=== PATIENT | female | born 1990 | race Two or more races ===

== ENCOUNTER 2021-12-26 17:01 | Emergency (ER) | payer SELFPAY ==
[~2021-12-26] VITALS: Ht 165.1 cm; Wt 80.3 kg
[2021-12-26 18:05] LABS: BASOPHILS % (AUTO) 0.6 % (0.0-2.0); EOSINOPHILS % (AUTO) 1.5 % (0.0-6.0); HEMATOCRIT 29 % (33-45); HEMOGLOBIN 9.6 g/dL (11.5-14.8); MEAN CORPUSCULAR HGB CONC 33 g/dl (31.0-36.0); MEAN CORPUSCULAR VOLUME 84 fL (82-100); MONOCYTES # (AUTO) 0.6 K/uL (0.1-1.30); MONOCYTES % (AUTO) 6.8 % (2.0-12.0); NEUTROPHILS # (AUTO) 5.6 K/uL (1.8-8.9); NEUTROPHILS % (AUTO) 67.1 % (43.0-81.0); PLATELET COUNT (AUTO) 433 K/uL (150-450); RED BLOOD CELL COUNT(AUTO) 3.52 MIL/uL (4.0-5.2); WHITE BLOOD COUNT (AUTO) 8.4 K/uL (4.3-11.0)
[2021-12-26 18:23] LABS: CALCIUM, SERUM 8.2 mg/dL (8.5-10.1); CREATININE 0.7 mg/dL (0.6-1.3); POTASSIUM 3.4 mmol/L (3.5-5.1)
[2021-12-26 18:51] LABS: ALBUMIN 2.5 g/dL (3.4-5.0); BILIRUBIN,DIRECT 0.1 mg/dL (0.0-0.2); BILIRUBIN,TOTAL 0.1 mg/dL (0.2-1.0); TOTAL PROTEIN, SERUM 6.6 g/dL (6.4-8.2)
--- NOTE | 2021-12-26 19:24 | NUR ---
URINE COLLECTED AND SENT TO LAB
[2021-12-26] MEDS ORDERED: PREN1TAB81 PO (20:11)
[2021-12-26 20:18] LABS: BILIRUBIN,URINE NEGATIVE (NEGATIVE); COLOR,URINE YELLOW (YELLOW); LEUKOCYTE ESTERASE ,URINE NEGATIVE (NEGATIVE); NITRITE, URINE NEGATIVE (NEGATIVE); PROTEIN,URINE NEGATIVE (NEGATIVE); UGLUCOSE NEGATIVE (NEGATIVE)
--- NOTE | 2021-12-26 20:23 | NUR ---
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 PT IN GOWN AND ON THE MONITOR BREATHING EVEN AND UNLABORED AND ALL V/S STABLE.
[2021-12-26 20:30] LABS: BACTERIA,URINE RARE /HPF (None Seen); RBC,URINE 0-2 /HPF (0-2); WBC,URINE 0-2 /HPF (0-3)
[2021-12-26 20:31] LABS: URINE AMORPHOUS URATE Few /HPF (None Seen)
[2021-12-26] MEDS ORDERED: OLANZAPINE 5 MG TABLET ONE (20:47)
--- NOTE | 2021-12-26 20:52 | NUR ---
AMBULANCE ETA TO [facility] SITE 0000
[2021-12-26] MEDS ORDERED: OLANZAPINE 5 MG TABLET PO ONE (21:00)
--- NOTE | 2021-12-26 23:09 | NUR ---
[facility] AT BEDSIDE FOR TRANSPORT.
[2021-12-26 23:21] VITALS: BP 128/79
== END 2021-12-26 23:21 | disposition home or self-care (01) ==
LOC: ER 17:04
DX: O46.91 Antepartum hemorrhage, unspecified, first trimester (principal); Z59.00 Homelessness unspecified; Z3A.13 13 weeks gestation of pregnancy
CPT/HCPCS: 76805-TC; 80048-TC; 80076-TC; 81001; 84702-TC; 85025-TC; 85730-TC; 86850-TC; 87210-TC; 87491; 87591